=== PATIENT | male | born 1955 | race African-American/Black ===

== ENCOUNTER 2018-08-13 01:42 | Emergency (ER) | payer MEDICARE, MEDICAID ==
[2018-08-13] MEDS ORDERED: SUCRALFATE 1 GM TABLET PO ONE (03:02)
[2018-08-13] MEDS ORDERED: FAMOTIDINE INJ/PF 20 MG/2 ML SDV IV ONE (03:02)
[2018-08-13 03:48] LABS: ABSOLUTE BASOPHILS # (AUTO) 0.1 10^3/uL (0.0-0.2); ABSOLUTE EOSINOPHILS # (AUTO) 0.1 10^3/uL (0.0-0.6); ABSOLUTE MONOCYTES (AUTO) 0.9 10^3/uL (0.1-1.4); ABSOLUTE NEUT (AUTO) 6.2 10^3/uL (1.7-8.2); BASOPHILS % (AUTO) 0.8 % (0-2); EOSINOPHILS % (AUTO) 1.1 % (0-6); HEMATOCRIT 41.3 % (37.9-51.0); HEMOGLOBIN 13.6 g/dL (13.5-17.0); LYMPHOCYTES % (AUTO) 21.5 % (13-45); MEAN CORPUSCULAR HEMOGLOBIN 26.9 pg (27.0-33.4); MEAN CORPUSCULAR HGB CONC 32.9 g/dL (32.0-36.0); MEAN CORPUSCULAR VOLUME 82 fl (80-97); MONOCYTES % (AUTO) 9.4 % (3-13); PLATELET COUNT 166 10^3/uL (150-450); RED BLOOD COUNT 5.05 10^6/uL (4.35-5.55); RED CELL DISTRIBUTION WIDTH 14.8 % (11.5-14.0); SEGMENTED NEUTROPHILS % (AUTO) 67.2 % (42-78); TOTAL CELLS COUNTED % (AUTO) 100 %; WHITE BLOOD COUNT 9.2 10^3/uL (4.0-10.5)
[2018-08-13 04:05] LABS: ALANINE AMINOTRANSFERASE 24 U/L (21-72); ALBUMIN 4.1 g/dL (3.5-5.0); ALKALINE PHOSPHATASE 79 U/L (38-126); ANION GAP 11 (5-19); ASPARTATE AMINO TRANSFERASE 26 U/L (17-59); BILIRUBIN,DIRECT 0.4 mg/dL (0.0-0.4); BILIRUBIN,TOTAL 0.5 mg/dL (0.2-1.3); BLOOD UREA NITROGEN 12 mg/dL (7-20); CALCIUM 10.1 mg/dL (8.4-10.2); CARBON DIOXIDE 28 mmol/L (22-30); CHLORIDE 102 mmol/L (98-107); GLUCOSE 138 mg/dL (75-110); LIPASE 106.2 U/L (23-300); SODIUM 140.7 mmol/L (137-145); TOTAL PROTEIN 7.5 g/dL (6.3-8.2)
[2018-08-13 04:14] LABS: APPEARANCE,URINE SLIGHTLY-CLOUDY; BILIRUBIN,URINE NEGATIVE (NEGATIVE); COLOR,URINE YELLOW; GLUCOSE, URINE 50 mg/dL (NEGATIVE); KETONES,URINE NEGATIVE (NEGATIVE); LEUKOCYTE ESTERASE,URINE NEGATIVE (NEGATIVE); NITRITE,URINE NEGATIVE (NEGATIVE); PROTEIN,URINE 30 mg/dL (NEGATIVE)
--- NOTE | 2018-08-13 05:15 | RADIOLOGY REPORT (SQ) ---
EXAM DESCRIPTION: CT ABDOMEN PELVIS WITH IV CONTRAST COMPLETED DATE/TME: 08/13/2018 03:02 CLINICAL HISTORY: 63 years, Male, periumbilical pain COMPARISON: None. TECHNIQUE: 419 Images stored on PACS. All CT scanners at this facility use dose modulation, iterative reconstruction, and/or weight based dosing when appropriate to reduce radiation dose to as low as reasonably achievable (ALARA). [facility]: Dose Right [facility]: CareDose [facility]: Dose Right [facility]: Teradose 4D [facility]: [employer] LIMITATIONS: None. FINDINGS: Limited evaluation of the lung bases is unremarkable. Respiratory motion artifact degrades image quality and limits the exam. Small hiatal hernia. Osseous structures are grossly intact. Fatty infiltrative change to the liver. The spleen, adrenal glands, pancreas, are unremarkable. Bilateral renal cortical scar formation. Subcentimeter renal cysts bilaterally. Layering sludge in the gallbladder lumen. No gross evidence for bowel obstruction. No free air or free fluid. Normal appendix. IMPRESSION: Small hiatal hernia. Fatty liver. Bilateral renal cortical scarring and cysts TECHNICAL DOCUMENTATION: Quality ID # 436: Final reports with documentation of one or more dose reduction techniques (e.g., Automated exposure control, adjustment of the mA and/or kV according to patient size, use of iterative reconstruction technique) copyright 2010 [employer]- All Rights Reserved
--- NOTE | 2018-08-13 05:58 | ER Document Report ---
ED General - General Chief Complaint: Medication Refill Stated Complaint: ABDOMINAL PAIN Time Seen by Provider: 08/13/18 02:52 Notes: Patient is a 63-year-old male presents to the emergency department for generalized abdominal pain since last night. Patient also admitting to some generalized nausea but is denying any vomiting or diarrhea. Patient is also denying any dysuria. Patient states he does have a history of an ulcer and typically takes medications for same. States he has been without his medications. Patient is unsure of the names for his ulcer medications besides Zantac. Patient appears very drowsy although easily aroused to verbal stimuli. Patient falls asleep during HPI assessment. Patient states he took an Ambien to try to go to sleep this evening. States he then experienced the abdominal pain which is why he presents to the emergency room. He is conscious alert and oriented x4. Past medical history: Ulcer, hypertension, diabetes Medications: Zantac, Ambien, gabapentin, metformin, Trintellix, Crestor, medro xyprogesteron Allergies: None Surgical history: None TRAVEL OUTSIDE OF THE [place] IN LAST 30 DAYS: No - Related Data Allergies/Adverse Reactions: No Known Allergies Allergy (Unverified 08/13/18 02:02) Past Medical History - General Information source: Patient - Social History Smoking Status: Never Smoker Chew tobacco use (# tins/day): No Frequency of alcohol use: None Drug Abuse: None Family History: Reviewed & Not Pertinent Patient has suicidal ideation: No Patient has homicidal ideation: No Renal/ Medical History: Denies: Hx Peritoneal Dialysis Review of Systems - Review of Systems Constitutional: No symptoms reported EENT: No symptoms reported Cardiovascular: No symptoms reported Respiratory: No symptoms reported Gastrointestinal: See HPI Genitourinary: No symptoms reported Male Genitourinary: No symptoms reported Musculoskeletal: No symptoms reported Skin: No symptoms reported Hematologic/Lymphatic: No symptoms reported Neurological/Psychological: No symptoms reported Physical Exam - Vital signs Vitals: Temp Pulse Resp BP Pulse Ox 98.2 F 94 16 124/70 93 08/13/18 02:02 08/13/18 02:02 08/13/18 02:02 08/13/18 02:02 08/13/18 02:02 - Notes Notes: GENERAL: Alert, interacts well. No acute distress. HEAD: Normocephalic, atraumatic. EYES: Pupils equal, round, and reactive to light. Extraocular movements intact. ENT: Oral mucosa moist, tongue midline. NECK: Full range of motion. Supple. Trachea midline. LUNGS: Clear to auscultation bilaterally, no wheezes, rales, or rhonchi. No respiratory distress. HEART: Regular rate and rhythm. No murmur ABDOMEN: Soft, generalized right and left lower abdominal pain noted. Minor left upper quadrant abdominal pain noted. No Martinez sign noted. Non-distended. Bowel sounds present in all 4 quadrants. EXTREMITIES: Moves all 4 extremities spontaneously. No edema, normal radial and dorsalis pedis pulses bilaterally. No cyanosis. BACK: no cervical, thoracic, lumbar midline tenderness. No saddle anesthesia, normal distal neurovascular exam. NEUROLOGICAL: Alert and oriented x3. Normal speech. cranial nerves II through XII grossly intact PSYCH: Normal affect, normal mood. SKIN: Warm, dry, normal turgor. No rashes or lesions noted. Course - Re-evaluation Re-evalutation: 08/13/18 06:16 Abdomen/Pelvis CT 08/13/18 03:02 IMPRESSION: Small hiatal hernia. Fatty liver. Bilateral renal cortical scarring and cysts TECHNICAL DOCUMENTATION: Quality ID # 436: Final reports with documentation of one or more dose reduction techniques (e.g., Automated exposure control, adjustment of the mA and/or kV according to patient size, use of iterative reconstruction technique) copyright 2011 [employer]- All Rights Reserved Patient's labs show no signs of leukocytosis, no signs of anemia, no electrolyte abnormality, no urinary tract infection noted. Patient was treated with Pepcid and Carafate in the emergency department. He states he overall feels a lot better. Patient is denying any further abdominal pain. Repeat examination reveals no right lower quadrant pain, left lower quadrant pain, epigastric pain, minor left upper pain noted. Discussed continued use of Pepcid and Carafate at home for his diagnosed ulcer and close follow-up with his primary care provider. Patient stable for discharge. - Vital Signs Vital signs: Temp Pulse Resp BP Pulse Ox 98.2 F 94 16 124/70 93 08/13/18 02:02 08/13/18 02:02 08/13/18 02:02 08/13/18 02:02 08/13/18 02:02 - Laboratory Result Diagrams: 08/13/18 03:24 08/13/18 03:24 Laboratory results interpreted by me: 08/13/18 08/13/18 08/13/18 03:24 03:24 03:35 MCH 26.9 L RDW 14.8 H Glucose 138 H Urine Protein 30 H Urine Glucose (UA) 50 H Urine Blood SMALL H Urine Urobilinogen 4.0 H Discharge - Discharge Clinical Impression: Abdominal pain Qualifiers: Abdominal location: right lower quadrant Qualified Code(s): R10.31 - Right lower quadrant pain Gastritis Qualifiers: Gastritis type: unspecified gastritis Chronicity: acute Gastritis bleeding: without bleeding Qualified Code(s): K29.00 - Acute gastritis without bleeding Condition: Stable Disposition: HOME, SELF-CARE Instructions: Abdominal Pain ([facility]), Gastritis ([facility]) Additional Instructions: As we discussed you have been seen and treated in the emergency department for your abdominal pain and gastritis. Your labs revealed no signs of abnormalities. Your CT imaging also shows no signs of a surgical abdomen. Please make sure you are taking medications as prescribed for your ulcer. Please also make sure he follow-up with your primary care provider for continued care. Return to the emergency room should you have any other concerns. Prescriptions: Famotidine [Pepcid 40 mg Tablet] 40 mg PO BID #60 tablet Sucralfate [Carafate 1 gm Tablet] 1 gm PO QID #20 tablet
[2018-08-13 06:58] VITALS: BP 154/74
== END 2018-08-13 06:56 | disposition home or self-care (01) ==
LOC: ER 01:42
DX: K29.00 Acute gastritis without bleeding (principal); R10.31 Right lower quadrant pain; R10.84 Generalized abdominal pain; R11.0 Nausea; I10 Essential (primary) hypertension
CPT/HCPCS: 99284; 96374; 36415; 87086; 83690; 85025; 80053; 81001; 74177; A9270; S0028